=== PATIENT | male | born 1955 | race Caucasian/White ===

== ENCOUNTER → 2019-03-30 10:09 | Outpatient (CLI) | payer OTHER, MEDICAID, SELFPAY ==
[2019-03-30 10:57] LABS: Add Manual Diff / Slide Review NO; Basophils Absolute Auto 0 /uL (0-100); Basophils Percent Auto 0.5 % (0-2); Eosinophils Absolute Auto 400 /uL (0-450); Hematocrit 43.3 % (41-53); Hemoglobin 14.7 g/dL (13.5-17.5); Lymphocytes Absolute Auto 1300 /uL (1100-4500); Lymphocytes Percent Auto 20.6 % (25-40); Mean Corpuscular HGB Conc 33.9 % (30-36); Mean Corpuscular Hemoglobin 31.4 PG (26-34); Mean Corpuscular Volume 92.8 fL (80-100); Monocytes Absolute Auto 500 /uL (0-900); Monocytes Percent Auto 8.3 % (3-14); Neutrophils Absolute Auto 4200 /uL (1500-7000); Neutrophils Percent Auto 64.6 % (50-75); Platelet Count 295 X10^3/uL (150-400); Red Blood Cell Count 4.66 X10^6/uL (4.5-5.9); Red Cell Distribution Width 13.3 % (11.6-14.8); White Blood Cell Count 6.5 X10^3/uL (4.5-11.0)
[2019-03-30 12:50] LABS: Carbon Dioxide 30 mmol/L (22-32); Chloride 101 mmol/L (98-107); HEMOLYSIS < 15 (0-50); Potassium 4.8 mmol/L (3.4-5.1); Sodium 139 mmol/L (137-145)
== END ==
PROVIDERS: PCP Orthopaedic Surgery; Visit Provider Orthopaedic Surgery
DX: Z01.818 Encounter for other preprocedural examination (principal); Z01.812 Encounter for preprocedural laboratory examination
CPT/HCPCS: 36415; 80051; 85025; 93005; 93010

== ENCOUNTER → 2019-04-27 11:09 | Outpatient (CLI) | payer OTHER, MEDICAID, SELFPAY ==
[2019-04-27 12:07] LABS: Carbon Dioxide 30 mmol/L (22-32); Chloride 103 mmol/L (98-107); HEMOLYSIS < 15 (0-50); Potassium 4.4 mmol/L (3.4-5.1); Sodium 140 mmol/L (137-145)
== END ==
PROVIDERS: Visit Provider Physician Assistant Medical
DX: Z01.818 Encounter for other preprocedural examination (principal)
CPT/HCPCS: 36415; 80051

== ENCOUNTER 2019-04-28 07:22 | Inpatient (IN) | payer OTHER, MEDICAID, SELFPAY ==
[2019-04-16 12:59] VITALS: BMI 30.9
[2019-04-28] VITALS (14 sets, daily range): BP systolic 97–137; BP diastolic 51–86; PULSE 50–65; RESP 10–18; TEMP 35.6–36.7; O2SAT 95–100; BMI 30.9
--- NOTE | 2019-04-28 06:00 | DI.RAD.S_ITS ---
PROCEDURE: XR PELVIS 1-2V INDICATIONS: post op TECHNIQUE: 1 view of the lower pelvis acquired. COMPARISON: [facility] [place], CR, XR PELVIS WITH LATERAL HIP LEFT, 11/12/2017, 9:44. [facility] [place], CR, XR PELVIS WITH LATERAL HIP LEFT, 03/05/2018, 11:17. [facility], CR, XR PELVIS WITH LATERAL HIP LEFT, 03/17/2019, 9:51. FINDINGS: Bones: Patient is status post left hip arthroplasty, with hardware components in expected positions. The hip joint appears congruent. The visualized bony structures appear intact. There is mild to moderate degenerative joint disease of the right hip. Soft tissues: Overlying postoperative changes are noted. No suspicious soft tissue densities. IMPRESSION: Left knee arthroplasty with prosthesis in anatomic alignment. Dictated by: Jose Vera M.D. on 04/28/2019 at 17:02 Approved by: Jose Vera M.D. on 04/28/2019 at 17:03
[2019-04-28] MEDS: CELECOXIB 200 MG CAPSULE PO (08:31)
[2019-04-28] MEDS: PREGABALIN 75 MG CAPSULE PO (08:31)
[2019-04-28] MEDS: ACETAMINOPHEN 325 MG TABLET 975 MG PO ×2 (08:31→21:33)
[2019-04-28] MEDS: LACTATED RINGERS 1,000 ML 42 ML IV ×2 (08:35→12:30)
--- NOTE | 2019-04-28 10:18 | PM.PREOP ---
Pre-operative Note Interval Note History & Physical reviewed/Exam performed by Physician: Yes Changes to H&P: No
[2019-04-28] MEDS: CEFAZOLIN 2 GM/100 ML FROZ.PIGGY IV ×2 (10:50→18:00)
--- NOTE | 2019-04-28 11:24 | SUR.OPER ---
Lateral on padded OR bed. Gel axillary roll. Arms secured on padded armboard with pillow supporting top arm. Padded hip positioner braces x4 - anterior and posterior chest and pelvis. Additional gel pad used anterior pelvis. Gel pad under bottom leg from knee to foot and secured with tape over sheet.
[2019-04-28] MEDS: TRANEXAMIC ACID 1,000 MG VIAL 1000 MG INJ ×2 (11:29→12:40)
[2019-04-28] MEDS: KETOROLAC 30 MG/ML VIAL IV (11:30)
[2019-04-28] MEDS: ROPIVACAINE 0.5% PF 30ML 20 ML INJ (11:30)
[2019-04-28] MEDS: MORPHINE 4 MG/ML INJ INJ (11:30)
--- NOTE | 2019-04-28 12:56 | PM.OP.1 ---
Operative Date/Time/Diagnoses Date of procedure: 04/28/19 Time of procedure: 12:57 Pre-op diagnosis: Left hip degenerative joint disease status post cannulated screw fixation of left femoral neck fracture Post-op diagnosis: same Procedure & Clinicians Procedure: 1. Left hip hardware removal, cannulated screws (CPT code 99656 with clinical services assistant) 2. Left total hip arthroplasty, conversion of previous hip surgery to total hip arthroplasty (CPT code 60756 with clinical services assistant) Same procedure as scheduled: Yes Indications: Patient is an 64-year-old male with severe left hip DJD. History of displaced femoral neck fracture treated with cannulated screw fixation. 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 The patient has pain with activities and at rest, limited ambulation and activity tolerance, difficulties with ADLs, and failure of conservative treatment. We have discussed the nature of condition, treatment options, risks and benefits, and patient elects to proceed with total hip arthroplasty and gives informed consent. Surgeon: John Dasilva Outbound Telemarketing Representative: González Washington Anesthesia Type: General and Spinal Operative Notes Closure Type: primary Specimen(s): none sent Prosthetic devices, grafts, tissues, transplants, or devices: Acetabulum: Arriola and Nephew R3 acetabular component size 52 mm Femoral component: Arriola and Nephew Anthology stem size 6 with standard offset Femoral head: 36 mm + 4 Oxinium Estimated Blood Loss (mL): 200 Blood products transfused: none Procedure in detail: After satisfactory induction of anesthetic, and administration of IV antibiotics, the patient was positioned in the lateral decubitus position with all bony prominences well padded and pelvic position secured using a hip fire protection engineering technician positioning device. Left hip and lower extremity prepped and draped in the usual sterile fashion, 1st dose of intravenous tranexamic acid was administered, then a longitudinal incision was created centered over the greater trochanter and carried sharply through the skin and subcutaneous tissues down to the fascia elijah which was divided longitudinally. Distally and laterally the screw heads were palpable and small incisions made through the vastus lateralis over each screw and the screws were sequentially removed with a screwdriver. The fascia eljiah was then retracted with a Charnley retractor. The proximal and posterior anatomy were distorted secondary to the fracture and scar tissue but external rotators were reasonably well visualized, cut, tagged, and retracted posteriorly, then the capsule was cut in a T-type fashion with the corners tagged and retracted. Hip was dislocated and femoral neck cut made according to preoperative templating. Anterior capsular release was performed. Acetabular retractors then placed, and the acetabular labrum and osteophytes were excised. The acetabulum was then sequentially reamed to 51 mm with an excellent circumferential ream and fit with the trial. The trial component was removed and a permanent size 52 mm Arriola and Nephew R3 acetabular component was selected, positioned, and impacted with satisfactory position and fixation achieved. Permanent liner was then inserted with the elevated lip directed posteriorly. Soft tissue then removed off the lateral femoral neck in the lateral neck was entered using a box osteotome. T-handled reamers placed down the canal followed by sequential broaching to 6 with the final broach left in place for trial reduction which demonstrated excellent leg length, range of motion (although as expected somewhat tight and full extension), and stability characteristics with a 36 mm +4 trial ball. The trial and broach were removed, and a permanent size 6 Arriola and Nephew Anthology stem was selected and inserted with excellent position and fixation achieved. Another trial reduction yielded the above characteristics so the trial ball was exchanged for a permanent 36 mm +4 Oxinium ball. The hip was irrigated and reduced and excellent leg length range of motion and stability characteristics were achieved and maintained. Periarticular tissues were infiltrated with ropivacaine, Toradol, and morphine. The hip was copiously irrigated, and the capsule repaired with #2 Ethibond, and the piriformis was repaired back to the greater trochanter with the same. Fascia elijah closed with interrupted #1 Ethibond sutures, and the subcutaneous tissues were closed in 2 layers of 0 Vicryl and 2 0 Vicryl. Skin was closed with gonzales and sterile dressings applied. Second dose of tranexamic acid was administered intravenously, and the anesthetic was terminated. Complications: none Condition: stable Disposition: PACU Plan for aftercare: Patient will be admitted to the acute care [facility], and anticipate discharge on postop day 1 or 2 with follow-up in office in 10-14 days. Outpatient physical therapy will be arranged and patient will continue to observe posterior hip precautions. Patient will continue use of postoperative Lovenox for 10 days postop.
--- NOTE | 2019-04-28 12:59 | P.OP_ITS ---
Operative Date/Time/Diagnoses Date of procedure: 04/28/19 Time of procedure: 12:57 Pre-op diagnosis: Left hip degenerative joint disease status post cannulated screw fixation of left femoral neck fracture Post-op diagnosis: same Procedure & Clinicians Procedure: 1. Left hip hardware removal, cannulated screws (CPT code 33119 with veterinary assistant) 2. Left total hip arthroplasty, conversion of previous hip surgery to total hip arthroplasty (CPT code 28852 with veterinary assistant) Same procedure as scheduled: Yes Indications: Patient is an 64-year-old male with severe left hip DJD. History of displaced femoral neck fracture treated with cannulated screw fixation. 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 The patient has pain with activities and at rest, limited ambulation and activity tolerance, difficulties with ADLs, and failure of conservative treatment. We have discussed the nature of condition, treatment options, risks and benefits, and patient elects to proceed with total hip arthroplasty and gives informed consent. Surgeon: John Dasilva R D Internship: [facility] [place] Anesthesia Type: General and Spinal Operative Notes Closure Type: primary Specimen(s): none sent Prosthetic devices, grafts, tissues, transplants, or devices: Acetabulum: Arriola and Nephew R3 acetabular component size 52 mm Femoral component: Arriola and Nephew Anthology stem size 6 with standard offset Femoral head: 36 mm + 4 Oxinium Estimated Blood Loss (mL): 200 Blood products transfused: none Procedure in detail: After satisfactory induction of anesthetic, and administ ration of IV antibiotics, the patient was positioned in the lateral decubitus position with all bony prominences well padded and pelvic position secured using a hip textile finisher positioning device. Left hip and lower extremity prepped and draped in the usual sterile fashion, 1st dose of intravenous tranexamic acid was administered, then a longitudinal incision was created centered over the greater trochanter and carried sharply through the skin and subcutaneous tissues down to the fascia elijah which was divided longitudinally. Distally and laterally the screw heads were palpable and small incisions made through the vastus lateralis over each screw and the screws were sequentially removed with a screwdriver. The fascia elijah was then retracted with a Charnley retractor. The proximal and posterior anatomy were distorted secondary to the fracture and scar tissue but external rotators were reasonably well visualized, cut, tagged, and retracted posteriorly, then the capsule was cut in a T-type fashion with the corners tagged and retracted. Hip was dislocated and femoral neck cut made according to preoperative templating. Anterior capsular release was performed. Acetabular retractors then placed, and the acetabular labrum and osteophytes were excised. The acetabulum was then sequentially reamed to 51 mm with an excellent circumferential ream and fit with the trial. The trial component was removed and a permanent size 52 mm Arriola and Nephew R3 acetabular component was selected, positioned, and impacted with satisfactory position and fixation achieved. Permanent liner was then inserted with the elevated lip directed posteriorly. Soft tissue then removed off the lateral femoral neck in the lateral neck was entered using a box osteotome. T-handled reamers placed down the canal followed by sequential broaching to 6 with the final broach left in place for trial reduction which demonstrated excellent leg length, range of motion (although as expected somewhat tight and full extension), and stability characteristics with a 36 mm +4 trial ball. The trial and broach were removed, and a permanent size 6 Arriola and Nephew Anthology stem was selected and inserted with excellent position and fixation achieved. Another trial reduction yielded the above characteristics so the trial ball was exchanged for a permanent 36 mm +4 Oxinium ball. The hip was irrigated and reduced and excellent leg length range of motion and stability characteristics were achieved and maintained. Periarticular tissues were infiltrated with ropivacaine, Toradol, and morphine. The hip was copiously irrigated, and the capsule repaired with #2 Ethibond, and the piriformis was repaired back to the greater trochanter with the same. Fascia elijah closed with interrupted #1 Ethibond sutures, and the subcutaneous tissues were closed in 2 layers of 0 Vicryl and 2 0 Vicryl. Skin was closed with gonzales and sterile dressings applied. Second dose of tranexamic acid was administered intravenously, and the anesthetic was terminated. Complications: none Condition: stable Disposition: PACU Plan for aftercare: Patient will be admitted to the acute care [facility], and anticipate discharge on postop day 1 or 2 with follow-up in office in 10-14 days. Outpatient physical therapy will be arranged and patient will continue to observe posterior hip precautions. Patient will continue use of postoperative Lovenox for 10 days postop.
[2019-04-28] MEDS: LACTATED RINGERS 1,000 ML 125 ML IV (14:46)
--- NOTE | 2019-04-28 16:34 | PT.IIE ---
Current Diagnoses Unilateral primary osteoarthritis, left hip (04/28/19) Fracture of unspecified part of neck of left femur, subsequent encounter for closed fracture with routine healing (04/28/19) Surgery Performed Operation Date: 04/28/19 10:30 Actual Procedures p Total Hip Arthroplasty(Left) - John Dasilva MD Surgical History (Last Updated 04/16/19 @ 14:24 by Afua Morales RN) Hx of arthroscopy of left knee (Acute ~1980) Medical History (Last Updated 04/16/19 @ 13:10 by Afua Morales RN) Arthritis (Acute) Closed head injury (Acute ~1980) Finger fracture, right (Acute) Hip fracture, left (Acute 10/31/17) Physical Therapy Inpatient Evaluation/Re-Eval M1 PT/OT-IP Prior Functional Status Start: 04/28/19 18:23 Freq: NEEDED Status: Active Protocol: Document 04/28/19 16:34 AB (Rec: 04/28/19 18:37 AB [id number]) Medical Review Prior Functional Status Medical History Reviewed Yes Communication able to make needs known Mobility and Gait pt stated that he is independent with all mobilities and ambulation without AD but uses a SPC first thing in the morning when LE is stiff initially but does not use any AD after warming up Social History Household Members family Living Arrangements House Number of Floors (Floors) One Floor Number of Stairs To Enter/Railing? 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 stated that he has neighbors that can help out but cannot stay with them to assist him M2 PT-IP Current Condition Start: 04/28/19 18:23 Freq: NEEDED Status: Active Protocol: Document 04/28/19 16:34 AB (Rec: 04/28/19 18:37 AB [id number]) Physical Therapy Current Condition Current Condition Evaluation Date 04/28/19 Treatment Diagnosis s/p L DREW posterior approach; difficulty in walking Onset Date 04/28/19 Precautions Posterior Hip Precautions No Hip Flexion > 90 degrees No Hip Internal Rotation No Hip Adduction Weight Bearing Status Weight Bearing Status Weight Bear as Tolerated M3 PT-IP Subjective Start: 04/28/19 18:23 Freq: NEEDED Status: Active Protocol: Document 04/28/19 16:34 AB (Rec: 04/28/19 18:37 AB [id number]) Subjective Physical Therapy Visit Type Type Initial Evaluation Visit Start Time 16:34 Visit Stop Time 17:16 Total Visit Minutes 42 Number of DIRECTOR EMERGENCY Visits 0 Physical Therapy Visit Comments Patient Comments pt agreeable to do PT Therapy Pain Assessment Pain Present Pain Present Denied Pain M4 PT-IP Mobility and Gait Start: 04/28/19 18:23 Freq: NEEDED Status: Active Protocol: Document 04/28/19 16:34 AB (Rec: 04/28/19 18:37 AB [id number]) PT-Bed Mobility Assessment Supine to Sit Supine to Sit Standby Assistance Sit to Supine Sit to Supine Standby Assistance Scooting Scooting to Edge of Bed Standby Assistance PT-Transfer Assessment Sit to and From Stand Sit to and from Stand Moderate Assistance Maximum Assistance 1 Person Assistance Use of Upper Extremities Equipment Transfer Assistive Device Gait Belt Front Wheeled Walker Orthotic/Prosthetic Devices or Brace: No Transfers Transfer Destination Chair Transfer Technique Stand Step Pivot Transfer Ability Level of Assist Moderate Assistance 1 Person Assistance Use of Upper Extremities Comments Mobility Comments pt completed sit to stand mod A and max cues; completed stand step pivot transfer using FWW mod A and cues. (+) L knee buckling requiring max A for steadiness. required tactile and verbal cues to activate L quads. pt stated that LLE still a little numb and hard to control during weight bearing. pt was able to control LLE during open chain activities but unable to fully control during closed chain activities. pt requested to go back to bed afterwards. completed stand step pivot transfer to the bed requiring mod A and max cues to activate L quads and for safety. Gait Assessment Comments Gait Comments unable at this time due to decrease LLE control PT-Balance Assessment Sitting Balance and Reactions Static Sitting Balance Ability Good Dynamic Sitting Balance Ability Good Standing Balance and Reactions Static Standing Balance Ability Poor Dynamic Standing Balance Ability Poor Device Used FWW M5 PT-IP Objective Assessments Start: 04/28/19 18:23 Freq: NEEDED Status: Active Protocol: Document 04/28/19 16:34 AB (Rec: 04/28/19 18:37 AB [id number]) Orientation Orientation/Cognition Level of Alertness Alert Orientation Name Place Situation Language Function Ability No Deficits Noted Safety Awareness Decreased Safety Awareness Memory Description No Deficits Noted Comments require cues to maintain hip precautions Gross Range of Motion Lower Extremity ROM Assessment Within Functional Limits Strength Lower Extremity Strength Assessment Left Impaired Hip 3+/5 Knee 3+/5 Ankle 4/5 Coordination Assessment Gross Coordination Gross Coordination WNL Sensation Assessment Sensation Gross Sensation Left LE Impaired Sensation Description Numbness Comments Sensation Comments c/o slight thigh numbness Muscle Tone Muscle Tone WNL Yes M6 PT-IP Treatment Start: 04/28/19 18:23 Freq: NEEDED Status: Active Protocol: Document 04/28/19 16:34 AB (Rec: 04/28/19 18:37 AB [id number]) Physical Therapy Treatment Education Education Provided Precautions Weight Bearing Status Post-Op Packet Safety Other Treatments Other Treatment Performed pt requires cues for L hip posterior precautions M7 PT-IP Assessment and Plan Start: 04/28/19 18:23 Freq: NEEDED Status: Active Protocol: Document 04/28/19 16:34 AB (Rec: 04/28/19 18:37 AB [id number]) PT Summary Assessment and Plan Potential Rehabilitation Potential Good Status of Condition at Evaluation Evolving Summary Impairments Pain ROM Strength Balance Coordination Sensation Tone Cognition Bed Mobility Transfers Gait Activity Tolerance Assessment Summary pt requiring mod ot max A with mobility and still c/o slight L thigh numbness with (+) L knee buckling during standing/ transfers. d/c plan depending on progress. 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 will continue to assess progress. pt stated that he is set up for outpt PT already. Goals Bed Mobility Goal Independent Transfer Goal Independent Front Wheeled Walker Gait Goal Independent Front Wheel Walker Gait Distance 200 Other Goals up/down 2 steps with R rail ascending SBA Days to Meet Goals 5 Frequency of Treatment Frequency Of Treatment Twice a Day Treatment Plan Physical Therapy Treatment Plan Bed Mobility Training Transfer Training Gait Training Therapeutic Exercise Balance Retraining Post Op Education Discharge Planning Hot or Cold Pack Neuromuscular Re-ed Coordination Retraining Manual Therapy Other Recommendations and Next Treatment transfers, ambulation Focus Recommendations To Nursing Amount of Assist Needed 1 Person Assist Discharge Recommendations PT Discharge Recommendations Home Outpatient PT
--- NOTE | 2019-04-29 00:24 | PC.NURSE ---
2300- Pt POD#0 L total hip w/ bulky dressing CDI; CMS intact. Pt denies pain; cont SpO2 in place as pt has a spinal done. Worked w/ PT however, not able to walk fully yet. Tolerating regular diet w/ no naus/vomiting. L hand IV running LR as ordered. Pt having difficulty voiding; straight cath completed @ 1830; bladder scan redone @ 2300 w/ 399 cc. Pt denies need for straight cath again, states he wants to try and void on his own. 0500- Pt still not voided since start of my shift. Up to bathroom 1PA w/ FWW; no luck voiding. Bladder scan= 509cc; pt has refused straight cath at this time stating he will 'go soon he feels like'. Will cont to monitor.
[2019-04-29] MEDS: LACTATED RINGERS 1,000 ML 125 ML IV ×2 (00:40→06:27)
[2019-04-29] MEDS: CEFAZOLIN 2 GM/100 ML FROZ.PIGGY IV (03:37)
[2019-04-29 06:00] VITALS: BP 103/52; PULSE 62; RESP 16; TEMP 36.6
[2019-04-29 06:19] LABS: Hematocrit 30.5 % (41-53); Hemoglobin 10.7 g/dL (13.5-17.5)
--- NOTE | 2019-04-29 07:52 | PM.PNPO.1 ---
Subjective Date Patient Seen: 04/29/19 Time Patient Seen: 07:53 Interval history: Patient denies pain. [place] a little nauseous last night but no vomiting. No fever chills. Has not yet worked with physical therapy. He has only been to the bedside chair 1 since surgery. Otherwise without complaints. Exam Vital Signs (past 8 hours): - 04/29/19 06:00 Temperature 97.8 F Pulse Rate 62 Respiratory Rate 16 Blood Pressure 103/52 L Oxygen Delivery Method Room Air Oxygen Flow Rate 0 Narrative Exam Narrative: Pleasant 64-year-old male resting comfortably in bed in no apparent distress. Left hip dressing is clean, dry and intact. Sensation grossly intact to light touch bilateral lower extremities. Motor function is intact distally. Left lower leg is warm and dry. Objective Labs Result Diagrams: 04/29/19 06:03 Labs: Laboratory Results - last 24 hr 04/29/19 06:03 Hgb 10.7 L Hct 30.5 L Assessment & Plan Post-op Postoperative Procedures Operation Date: 04/28/19 10:30 Actual Procedures Side Surgeon p Total Hip Arthroplasty Left John Dasilva MD Quality VTE Deep Vein Thrombosis/Pulmonary Embolism Present on Admission: No
[2019-04-29 08:31] VITALS: BP 96/53; PULSE 60; RESP 16; TEMP 37.4; O2SAT 97
--- NOTE | 2019-04-29 08:43 | CM.DANOTE ---
DCP: Case received, EMR reviewed and met with patient. Introduced self and role. History and baseline health information received from patient. DCP assessment template completed from information currently available. Patient is a 64 year old male who admitted yesterday morning to the care of the surgical team. PCP: [facility] on [address]. Payer: confirmed: [facility] [employer]Medicaid. Patient came to hospital for a surgical procedure. He had a cannulated screw fixation of left femoral neck. Patient stated that he originally had left femoral surgery, and they had to go in and remove some of the hardware. Patient is alert and oriented. Confirmed that he lives in [facility] [place] [facility], and his mother also resides with him. He stated that he helps her out at home. He also mentioned that he has neighbors that are helping her while he is here. Confirmed with patient that he is independent at home. He confirmed that he already has outpatient physical therapy set up with [facility]. He stated, that he has several neighbors that can help him out at home if needed. He will be working with physical therapy today. P: DCP to continue to follow. Patient should be able to go home when he is medically stable, and after he has worked with physical therapy team. Alia Coelho RN/[employer]
[2019-04-29] MEDS: ACETAMINOPHEN 325 MG TABLET 975 MG PO ×3 (09:10→21:17)
[2019-04-29] MEDS: ENOXAPARIN 40 MG/0.4 ML SYRINGE SUBCUT (09:11)
--- NOTE | 2019-04-29 11:00 | PC.NURSE ---
Patient had not voided since previous night. Patient was bladder scanned which showed 600-700mL. An in and out catherterization was performed and 675 mL was removed, the patient tolerated it well.
--- NOTE | 2019-04-29 11:25 | PT.IPTN ---
Current Diagnoses Unilateral primary osteoarthritis, left hip (04/28/19) Fracture of unspecified part of neck of left femur, subsequent encounter for closed fracture with routine healing (04/28/19) Surgery Performed Operation Date: 04/28/19 10:30 Actual Procedures p Total Hip Arthroplasty(Left) - John Dasilva MD Physical Therapy Treatment Note M2 PT-IP Current Condition Start: 04/28/19 18:23 Freq: NEEDED Status: Active Protocol: Document 04/28/19 16:34 AB (Rec: 04/28/19 18:37 AB [id number]) Physical Therapy Current Condition Current Condition Evaluation Date 04/28/19 Treatment Diagnosis s/p L DREW posterior approach; difficulty in walking Onset Date 04/28/19 Precautions Posterior Hip Precautions No Hip Flexion > 90 degrees No Hip Internal Rotation No Hip Adduction Weight Bearing Status Weight Bearing Status Weight Bear as Tolerated M3 PT-IP Subjective Start: 04/28/19 18:23 Freq: NEEDED Status: Active Protocol: Document 04/29/19 11:25 GGD (Rec: 04/29/19 12:28 GGD [email or web address]) Subjective Physical Therapy Visit Type Type Treatment Note Visit Start Time 11:00 Visit Stop Time 11:25 Total Visit Minutes 25 Number of REEL WORKER Visits 1 Physical Therapy Visit Comments Patient Comments Pt states he is doing better. Therapy Pain Assessment Pain Present Pain Present Denied Pain M4 PT-IP Mobility and Gait Start: 04/28/19 18:23 Freq: NEEDED Status: Active Protocol: Document 04/29/19 11:25 GGD (Rec: 04/29/19 12:28 GGD [email or web address]) PT-Bed Mobility Assessment Supine to Sit Supine to Sit Standby Assistance Scooting Scooting to Edge of Bed Standby Assistance PT-Transfer Assessment Sit to and From Stand Sit to and from Stand Contact Guard Assistance 1 Person Assistance Use of Upper Extremities Equipment Transfer Assistive Device Gait Belt Front Wheeled Walker Orthotic/Prosthetic Devices or Brace: No Transfers Transfer Destination Chair Transfer Ability Level of Assist Contact Guard Assistance 1 Person Assistance Use of Upper Extremities Gait Assessment Gait Gait Assistance Required: Contact Guard Assist 1 Person Assist Distance (Feet) 220 Able to Maintain Weight Bearing Status Yes During Gait Assistive Devices Assistive Device Gait Belt Front Wheeled Walker Orthotic/Prosthetic Devices or Brace: No Gait Deviations General Gait Pattern Antalgic Decreased Stride Length Decreased Feet Clearance Factors Limiting Gait Function Factors Limiting Gait Function Limited Range of Motion Pain M5 PT-IP Objective Assessments Start: 04/28/19 18:23 Freq: NEEDED Status: Active Protocol: Document 04/28/19 16:34 AB (Rec: 04/28/19 18:37 AB [id number]) Orientation Orientation/Cognition Level of Alertness Alert Orientation Name Place Situation Language Function Ability No Deficits Noted Safety Awareness Decreased Safety Awareness Memory Description No Deficits Noted Comments require cues to maintain hip precautions Gross Range of Motion Lower Extremity ROM Assessment Within Functional Limits Strength Lower Extremity Strength Assessment Left Impaired Hip 3+/5 Knee 3+/5 Ankle 4/5 Coordination Assessment Gross Coordination Gross Coordination WNL Sensation Assessment Sensation Gross Sensation Left LE Impaired Sensation Description Numbness Comments Sensation Comments c/o slight thigh numbness Muscle Tone Muscle Tone WNL Yes M6 PT-IP Treatment Start: 04/28/19 18:23 Freq: NEEDED Status: Active Protocol: Document 04/29/19 11:25 GGD (Rec: 04/29/19 12:28 GGD [email or web address]) Physical Therapy Treatment Exercises Exercises Ankle Pumps Gluteal Sets Quad Sets Short Arc Quads Education Education Provided Precautions Weight Bearing Status M7 PT-IP Assessment and Plan Start: 04/28/19 18:23 Freq: NEEDED Status: Active Protocol: Document 04/29/19 11:25 GGD (Rec: 04/29/19 12:28 GGD [email or web address]) PT Summary Assessment and Plan Summary Assessment Summary Pt improving with mobility. He progress with mobility and need CGA. He need cues for hip precautions. He was able to progress gait distance. Pt will need stair mobility, before D/C home. Frequency of Treatment Frequency Of Treatment Twice a Day Treatment Plan Physical Therapy Treatment Plan Bed Mobility Training Transfer Training Gait Training Therapeutic Exercise Balance Retraining Post Op Education Discharge Planning Hot or Cold Pack Neuromuscular Re-ed Coordination Retraining Manual Therapy Recommendations To Nursing Amount of Assist Needed 1 Person Assist Discharge Recommendations PT Discharge Recommendations Home Outpatient PT
[2019-04-29 12:05] VITALS: BP 97/60; PULSE 61; RESP 16; TEMP 37.6; O2SAT 97
[2019-04-29 15:34] VITALS: BP 100/57; PULSE 57; RESP 18; TEMP 37; O2SAT 98
--- NOTE | 2019-04-29 16:00 | PT.IPTN ---
Current Diagnoses Unilateral primary osteoarthritis, left hip (04/28/19) Fracture of unspecified part of neck of left femur, subsequent encounter for closed fracture with routine healing (04/28/19) Surgery Performed Operation Date: 04/28/19 10:30 Actual Procedures p Total Hip Arthroplasty(Left) - John Dasilva MD Physical Therapy Treatment Note M2 PT-IP Current Condition Start: 04/28/19 18:23 Freq: NEEDED Status: Active Protocol: Document 04/28/19 16:34 AB (Rec: 04/28/19 18:37 AB [id number]) Physical Therapy Current Condition Current Condition Evaluation Date 04/28/19 Treatment Diagnosis s/p L DREW posterior approach; difficulty in walking Onset Date 04/28/19 Precautions Posterior Hip Precautions No Hip Flexion > 90 degrees No Hip Internal Rotation No Hip Adduction Weight Bearing Status Weight Bearing Status Weight Bear as Tolerated M3 PT-IP Subjective Start: 04/28/19 18:23 Freq: NEEDED Status: Active Protocol: Document 04/29/19 16:00 GGD (Rec: 04/29/19 17:02 GGD [email or web address]) Subjective Physical Therapy Visit Type Type Treatment Note Visit Start Time 13:30 Visit Stop Time 16:00 Total Visit Minutes 30 Number of RAIL SPECIALIST Visits 2 Physical Therapy Visit Comments Patient Comments Pt willing to work with therapy. Therapy Pain Assessment Pain When Pain Assessed At Rest Pain Present Pain Present Pain Reported Location left hip Intensity 1 Scale Used Numeric (1 - 10) M4 PT-IP Mobility and Gait Start: 04/28/19 18:23 Freq: NEEDED Status: Active Protocol: Document 04/29/19 16:00 GGD (Rec: 04/29/19 17:02 GGD [email or web address]) PT-Bed Mobility Assessment Supine to Sit Supine to Sit Standby Assistance Sit to Supine Sit to Supine Standby Assistance Scooting Scooting to Edge of Bed Standby Assistance PT-Transfer Assessment Sit to and From Stand Sit to and from Stand Contact Guard Assistance 1 Person Assistance Use of Upper Extremities Equipment Transfer Assistive Device Gait Belt Front Wheeled Walker Orthotic/Prosthetic Devices or Brace: No Transfers Transfer Destination Chair Transfer Ability Level of Assist Contact Guard Assistance 1 Person Assistance Use of Upper Extremities Gait Assessment Gait Gait Assistance Required: Contact Guard Assist 1 Person Assist Distance (Feet) 250 Able to Maintain Weight Bearing Status Yes During Gait Assistive Devices Assistive Device Gait Belt Front Wheeled Walker Orthotic/Prosthetic Devices or Brace: No Gait Deviations General Gait Pattern Antalgic Decreased Stride Length Decreased Feet Clearance Factors Limiting Gait Function Factors Limiting Gait Function Limited Range of Motion Pain Stair Climbing Assessment Evaluation Level of Assist On Stairs Contact Guard Assistance Devices Stair Climbing Assistive Devices Right Railing Technique/Endurance Stair Climbing Direction Ascend and Descend Stair Climbing Technique Step to Step Number of Steps Climbed 3 Query Text: Stair Climbing Set # Repetitions (reps) 2 M5 PT-IP Objective Assessments Start: 04/28/19 18:23 Freq: NEEDED Status: Active Protocol: Document 04/28/19 16:34 AB (Rec: 04/28/19 18:37 AB [id number]) Orientation Orientation/Cognition Level of Alertness Alert Orientation Name Place Situation Language Function Ability No Deficits Noted Safety Awareness Decreased Safety Awareness Memory Description No Deficits Noted Comments require cues to maintain hip precautions Gross Range of Motion Lower Extremity ROM Assessment Within Functional Limits Strength Lower Extremity Strength Assessment Left Impaired Hip 3+/5 Knee 3+/5 Ankle 4/5 Coordination Assessment Gross Coordination Gross Coordination WNL Sensation Assessment Sensation Gross Sensation Left LE Impaired Sensation Description Numbness Comments Sensation Comments c/o slight thigh numbness Muscle Tone Muscle Tone WNL Yes M6 PT-IP Treatment Start: 04/28/19 18:23 Freq: NEEDED Status: Active Protocol: Document 04/29/19 16:00 GGD (Rec: 04/29/19 17:02 GGD [email or web address]) Physical Therapy Treatment Exercises Exercises Ankle Pumps Gluteal Sets Quad Sets Education Education Provided Precautions M7 PT-IP Assessment and Plan Start: 04/28/19 18:23 Freq: NEEDED Status: Active Protocol: Document 04/29/19 16:00 GGD (Rec: 04/29/19 17:02 GGD [email or web address]) PT Summary Assessment and Plan Summary Assessment Summary Pt improving with mobility. He was safe and stable with stair mobility. He needed decrease in cues for precautions and gait pattern. Frequency of Treatment Frequency Of Treatment Twice a Day Treatment Plan Physical Therapy Treatment Plan Bed Mobility Training Transfer Training Gait Training Therapeutic Exercise Balance Retraining Post Op Education Discharge Planning Hot or Cold Pack Neuromuscular Re-ed Coordination Retraining Manual Therapy Recommendations To Nursing Amount of Assist Needed 1 Person Assist Discharge Recommendations PT Discharge Recommendations Home Outpatient PT
[2019-04-29] MEDS: OXYCODONE IR 5 MG TABLET PO (16:18)
--- NOTE | 2019-04-29 16:28 | PC.NURSE ---
Addendum entered by Dee York R.N. 04/29/19 19:04: Pt reports has own I.S. at home as part of ortho instruction preop. States no difficulty with deep breathing. Pt independent in lung exercises. Addendum entered by Dee York R.N. 04/29/19 18:44: Pt now able to void spontaneously. Continue with oral fluids and monitor. Urine light yellow in color per urinal. Addendum entered by Dee York R.N. 04/29/19 18:26: Eight hours since last in and out cath as per report. Bladder scanned for 709 cc's. Pt currently on telephone and plan to discuss when not. Addendum entered by Dee York R.N. 04/29/19 17:16: Pt states pain relief excellent now 0/10 to left hip. Coversite dressings x 2 to left hip remain dry and intact. Pt observes hip precautions and pillow between legs. Taking oral fluids and foods well. Original Note: Pt up with P.T. @ beginning of evening shift. P.T. primary teaching assistant reports pt's left hip dressing is rolling up and inquires about changing this dressing. Hypofix tape proximally has rolled onto dressing and so this was removed. Staple line to left hip is well approximated with no active bleeding noted. Covered incision with coversite dressings x 2. P.T. mobilizing pt in room and on stairs. Pt reports pain 2/10 following these exercises and return to bed. States sensation beginning to return and rates pain 2/10 to left hip and requests analgesia. Administered meds as per emar. Pt declines offer for ice to surgical site. BL calf scd's in place. Pt admits to full sensation to BL LE's. Awaiting void. Pt taking oral fluids well.
[2019-04-29 19:41] VITALS: BP 105/58; PULSE 57; RESP 18; TEMP 37.3; O2SAT 98
[2019-04-29] MEDS: SODIUM CHLORIDE 0.9% FLUSH 10 ML IV (21:17)
[2019-04-30 00:39] VITALS: BP 110/59; PULSE 56; RESP 15; TEMP 36.7; O2SAT 100
[2019-04-30 05:18] VITALS: BP 106/58; PULSE 58; RESP 16; TEMP 37.1; O2SAT 97
[2019-04-30] MEDS: ACETAMINOPHEN 325 MG TABLET 975 MG PO ×2 (06:43→12:19)
--- NOTE | 2019-04-30 08:24 | PM.DS.1 ---
History of Present Illness Date Patient Seen: 04/30/19 Time Patient Seen: 08:24 Chief complaint: [id number] Left DREW/HARDWARE REMOVAL Narrative: Hospital day 3, postop day 2 following left hip hardware removal and posterior total hip arthroplasty. Patient has remained stable postoperatively. Has progressed with physical therapy. He is a [facility] patient. Patient feels he is ready for discharge home today. He is scheduled to go to [facility]. Discharge Providers Date of admission: 04/28/19 07:22 Discharge Date: 04/30/19 Consults: 04/28/19 06:00 Consult to Anesthesiology Routine Comment: Consulting Provider: Anesthesiologist Reason for consultation: Regional block for post operative pain control 04/28/19 14:16 Consult to Discharge Planning Routine Comment: Consult to Physical Therapy Evaluate & Treat Comment: Physician Instructions: post op DREW protocol Consult to Respiratory Therapy Evaluate & Treat Comment: Physician Instructions: Evaluate and treat Discharge provider: Carlos Manuel Tate PA-C Summary Discharge Diagnosis: Status post left hip hardware removal and posterior total hip arthroplasty Hospital Course: Patient brought to hospital on 04/28/2019 for above noted surgery. He has remained stable postoperatively. Progressed well with physical therapy. Ready for discharge home on postop day 2. Status at Discharge Cognitive/behavioral status at discharge: oriented Functional status at discharge: uses cane/walker Overall status at discharge: patient is progressing back to baseline Time Spent with Patient Less than 30 minutes Exam Vital Signs (past 8 hours): - 04/30/19 00:39 04/30/19 05:18 Temperature 98.0 F 98.7 F Pulse Rate 56 L 58 L Respiratory Rate 15 16 Blood Pressure 110/59 L 106/58 L Pulse Oximetry 100 97 Oxygen Delivery Method Room Air Oxygen Flow Rate 0 Narrative Exam Narrative: Alert, oriented no acute distress resting in bed. Farzana legs. Dressing to left hip is dry with small area of shadowing. No signs of infection or inflammation. No calf pain or swelling. Pulses symmetrical. Objective Labs Result Diagrams: 04/29/19 06:03 Discharge Plan Discharge Plan Patient Disposition: Home Discharge comment: Discharged home after cleared by PT. Patient is a [facility] patient and has postoperative pain medication at home. He will be on Lovenox injections times 10 days postop. Restart aspirin 81 mg b.i.d. after he finishes the Lovenox. Discharge Med Rec/Prescriptions Prescriptions: New acetaminophen 325 mg Tablet 975 mg PO TID Qty: 30 RF: 0 enoxaparin 40 mg/0.4 mL syringe 40 mg SUBCUT DAILY Qty: 8 RF: 0 Continued aspirin 81 MG tablet,delayed release (DR/EC) 81 mg PO PRN PRN (Reason: Pain) RF: 0 Discontinued hydrocodone-acetaminophen [[place]] 5 MG/325 MG tablet 1 tab PO Q4HP PRN (Reason: Pain) RF: 0 Provider Discharge Instructions Diet: Diet as Tolerated Cold/Heat Therapy: Cold pack to left hip as needed. Skin/Wound/Dressing Care Report to your healthcare provider any signs of infection, such as:: chills, fever, night sweats, increased pain, unusual drainage and unusual redness Dressing: Keep CovRsite dressing in place until postop visit. Visit Report/Discharge Packet Instructions: DI for Hip Replacement Discharge Data Attending Provider: John Dasilva Admit Date/Time: 04/28/19 07:22 Quality VTE Deep Vein Thrombosis/Pulmonary Embolism Present on Admission: No
--- NOTE | 2019-04-30 08:27 | P.DS_ITS ---
History of Present Illness Date Patient Seen: 04/30/19 Time Patient Seen: 08:24 Chief complaint: [id number] Left DREW/HARDWARE REMOVAL Narrative: Hospital day 3, postop day 2 following left hip hardware removal and posterior total hip arthroplasty. Patient has remained stable postoperatively. Has progressed with physical therapy. He is a [facility] patient. Patient feels he is ready for discharge home today. He is scheduled to go to [facility]. Discharge Providers Date of admission: 04/28/19 07:22 Discharge Date: 04/30/19 Consults: 04/28/19 06:00 Consult to Anesthesiology Routine Comment: Consulting Provider: Anesthesiologist Reason for consultation: Regional block for post operative pain control 04/28/19 14:16 Consult to Discharge Planning Routine Comment: Consult to Physical Therapy Evaluate & Treat Comment: Physician Instructions: post op DREW protocol Consult to Respiratory Therapy Evaluate & Treat Comment: Physician Instructions: Evaluate and treat Discharge provider: Carlos Manuel Tate PA-C Summary Discharge Diagnosis: Status post left hip hardware removal and posterior total hip arthroplasty Hospital Course: Patient brought to hospital on 04/28/2019 for above noted surgery. He has remained stable postoperatively. Progressed well with physical therapy. Ready for discharge home on postop day 2. Status at Discharge Cognitive/behavioral status at discharge: oriented Functional status at discharge: uses cane/walker Overall status at discharge: patient is progressing back to baseline Time Spent with Patient Less than 30 minutes Exam Vital Signs (past 8 hours): - 04/30/19 00:39 04/30/19 05:18 Temperature 98.0 F 98.7 F Pulse Rate 56 L 58 L Respiratory Rate 15 16 Blood Pressure 110/59 L 106/58 L Pulse Oximetry 100 97 Oxygen Delivery Method Room Air Oxygen Flow Rate 0 Narrative Exam Narrative: Alert, oriented no acute distress resting in bed. Farzana legs. Dressing to left hip is dry with small area of shadowing. No signs of infection or inflammation. No calf pain or swelling. Pulses symmetrical. Objective Labs Result Diagrams: 04/29/19 06:03 Discharge Plan Discharge Plan Patient Disposition: Home Discharge comment: Discharged home after cleared by PT. Patient is a [facility] patient and has postoperative pain medication at home. He will be on Lovenox injections times 10 days postop. Restart aspirin 81 mg b.i.d. after he finishes the Lovenox. Discharge Med Rec/Prescriptions Prescriptions: New acetaminophen 325 mg Tablet 975 mg PO TID Qty: 30 RF: 0 enoxaparin 40 mg/0.4 mL syringe 40 mg SUBCUT DAILY Qty: 8 RF: 0 Continued aspirin 81 MG tablet,delayed release (DR/EC) 81 mg PO PRN PRN (Reason: Pain) RF: 0 Discontinued hydrocodone-acetaminophen [[place]] 5 MG/325 MG tablet 1 tab PO Q4HP PRN (Reason: Pain) RF: 0 Provider Discharge Instructions Diet: Diet as Tolerated Cold/Heat Therapy: Cold pack to left hip as needed. Skin/Wound/Dressing Care Report to your healthcare provider any signs of infection, such as:: chills, fever, night sweats, increased pain, unusual drainage and unusual redness Dressing: Keep CovRsite dressing in place until postop visit. Visit Report/Discharge Packet Instructions: DI for Hip Replacement Discharge Data Attending Provider: John Dasilva Admit Date/Time: 04/28/19 07:22 Quality VTE Deep Vein Thrombosis/Pulmonary Embolism Present on Admission: No
[2019-04-30 08:35] VITALS: BP 119/66; PULSE 61; RESP 18; TEMP 36.6; O2SAT 99
[2019-04-30] MEDS: ENOXAPARIN 40 MG/0.4 ML SYRINGE SUBCUT (09:54)
--- NOTE | 2019-04-30 10:35 | PT.IPTN ---
Current Diagnoses Unilateral primary osteoarthritis, left hip (04/28/19) Fracture of unspecified part of neck of left femur, subsequent encounter for closed fracture with routine healing (04/28/19) Surgery Performed Operation Date: 04/28/19 10:30 Actual Procedures p Total Hip Arthroplasty(Left) - John Dasilva MD Physical Therapy Treatment Note M2 PT-IP Current Condition Start: 04/28/19 18:23 Freq: NEEDED Status: Active Protocol: Document 04/28/19 16:34 AB (Rec: 04/28/19 18:37 AB [id number]) Physical Therapy Current Condition Current Condition Evaluation Date 04/28/19 Treatment Diagnosis s/p L DREW posterior approach; difficulty in walking Onset Date 04/28/19 Precautions Posterior Hip Precautions No Hip Flexion > 90 degrees No Hip Internal Rotation No Hip Adduction Weight Bearing Status Weight Bearing Status Weight Bear as Tolerated M3 PT-IP Subjective Start: 04/28/19 18:23 Freq: NEEDED Status: Active Protocol: Document 04/30/19 10:35 GGD (Rec: 04/30/19 11:54 GGD [id number]) Subjective Physical Therapy Visit Type Type Treatment Note Visit Start Time 09:55 Visit Stop Time 10:35 Total Visit Minutes 40 Number of RUG CLEANER Visits 3 Physical Therapy Visit Comments Patient Comments Pt states he feels better. Therapy Pain Assessment Pain When Pain Assessed At Rest Pain Present Pain Present Pain Reported M4 PT-IP Mobility and Gait Start: 04/28/19 18:23 Freq: NEEDED Status: Active Protocol: Document 04/30/19 10:35 GGD (Rec: 04/30/19 11:54 GGD [id number]) PT-Transfer Assessment Sit to and From Stand Sit to and from Stand Standby Assistance Use of Upper Extremities Equipment Transfer Assistive Device Gait Belt Front Wheeled Walker Orthotic/Prosthetic Devices or Brace: No Transfers Transfer Destination Bedside Commode Transfer Ability Level of Assist Contact Guard Assistance 1 Person Assistance Use of Upper Extremities Comments Mobility Comments [place] [facility] [place] RN in room. Gait Assessment Gait Gait Assistance Required: Standby Assistance 1 Person Assist Distance (Feet) 250 Able to Maintain Weight Bearing Status Yes During Gait Assistive Devices Assistive Device Gait Belt Front Wheeled Walker Orthotic/Prosthetic Devices or Brace: No Gait Deviations General Gait Pattern Antalgic Decreased Stride Length Decreased Feet Clearance Factors Limiting Gait Function Factors Limiting Gait Function Limited Range of Motion Pain Stair Climbing Assessment Evaluation Level of Assist On Stairs Contact Guard Assistance Devices Stair Climbing Assistive Devices Right Railing Technique/Endurance Stair Climbing Direction Ascend and Descend Stair Climbing Technique Step to Step Number of Steps Climbed 3 Query Text: Stair Climbing Set # Repetitions (reps) 1 Comments Stair Climbing Comments Pt need cues for gait pattern M5 PT-IP Objective Assessments Start: 04/28/19 18:23 Freq: NEEDED Status: Active Protocol: Document 04/28/19 16:34 AB (Rec: 04/28/19 18:37 AB [id number]) Orientation Orientation/Cognition Level of Alertness Alert Orientation Name Place Situation Language Function Ability No Deficits Noted Safety Awareness Decreased Safety Awareness Memory Description No Deficits Noted Comments require cues to maintain hip precautions Gross Range of Motion Lower Extremity ROM Assessment Within Functional Limits Strength Lower Extremity Strength Assessment Left Impaired Hip 3+/5 Knee 3+/5 Ankle 4/5 Coordination Assessment Gross Coordination Gross Coordination WNL Sensation Assessment Sensation Gross Sensation Left LE Impaired Sensation Description Numbness Comments Sensation Comments c/o slight thigh numbness Muscle Tone Muscle Tone WNL Yes M6 PT-IP Treatment Start: 04/28/19 18:23 Freq: NEEDED Status: Active Protocol: Document 04/30/19 10:35 GGD (Rec: 04/30/19 11:54 GGD [id number]) Physical Therapy Treatment Exercises Exercises Ankle Pumps Gluteal Sets Quad Sets Seated Knee Flexion/Extension Education Education Provided Precautions M7 PT-IP Assessment and Plan Start: 04/28/19 18:23 Freq: NEEDED Status: Active Protocol: Document 04/30/19 10:35 GGD (Rec: 04/30/19 11:54 GGD [id number]) PT Summary Assessment and Plan Summary Assessment Summary Pt improved with mobility. He demonstrated improved hip precautions with mobility. He is safe for home D/C when medically stable. Frequency of Treatment Frequency Of Treatment Twice a Day Treatment Plan Physical Therapy Treatment Plan Bed Mobility Training Transfer Training Gait Training Therapeutic Exercise Balance Retraining Post Op Education Discharge Planning Hot or Cold Pack Neuromuscular Re-ed Coordination Retraining Manual Therapy Recommendations To Nursing Amount of Assist Needed 1 Person Assist Discharge Recommendations PT Discharge Recommendations Home Outpatient PT
[2019-04-30 11:00] VITALS: BP 121/68; PULSE 60; RESP 18; TEMP 36.2; O2SAT 99
== END 2019-04-30 14:15 | disposition home or self-care (01) | DRG 301 ==
PROVIDERS: Admitting Provider Orthopaedic Surgery; Visit Provider Orthopaedic Surgery
PROC: 0SRB0JZ Replacement of Left Hip Joint with Synthetic Substitute, Open Approach (ICD-10-PCS; CPT 27130; principal; 2019-04-28 10:30)
DX: M16.7 Other unilateral secondary osteoarthritis of hip (principal); S72.002D Fracture of unspecified part of neck of left femur, subsequent encounter for closed fracture with routine healing; X58.XXXA Exposure to other specified factors, initial encounter; I69.354 Hemiplegia and hemiparesis following cerebral infarction affecting left non-dominant side
CPT/HCPCS: 36415; 72170; 80051; 85014; 85018; 97110; 97116; 97162; 97530; C1776; J0690; J1100; J1650; J1885; J2250; J2270; J2274; J2405; J2704; J2795

== ENCOUNTER → 2020-08-22 08:33 | Outpatient (CLI) | payer OTHER, MEDICAID, SELFPAY ==
[2019-04-28 14:23] VITALS: BMI 30.9
[2020-08-22 09:25] LABS: Add Manual Diff / Slide Review NO; Basophils Absolute Auto 0 /uL (0-100); Basophils Percent Auto 0.5 % (0-2); Eosinophils Absolute Auto 500 /uL (0-450); Eosinophils Percent Auto 7.4 % (2-4); Hematocrit 41.5 % (41-53); Hemoglobin 14.3 g/dL (13.5-17.5); Lymphocytes Absolute Auto 1400 /uL (1100-4500); Lymphocytes Percent Auto 21.2 % (25-40); Mean Corpuscular HGB Conc 34.5 % (30-36); Mean Corpuscular Hemoglobin 31.9 PG (26-34); Mean Corpuscular Volume 92.3 fL (80-100); Monocytes Absolute Auto 600 /uL (0-900); Monocytes Percent Auto 8.8 % (3-14); Neutrophils Absolute Auto 4000 /uL (1500-7000); Neutrophils Percent Auto 62.1 % (50-75); Platelet Count 243 X10^3/uL (150-400); Red Cell Distribution Width 13.3 % (11.6-14.8); White Blood Cell Count 6.5 X10^3/uL (4.5-11.0)
== END ==
PROVIDERS: Referring Provider Orthopaedic Surgery; Visit Provider Orthopaedic Surgery
DX: Z01.812 Encounter for preprocedural laboratory examination (principal); Z01.818 Encounter for other preprocedural examination
CPT/HCPCS: 36415; 85025; 93005

== ENCOUNTER → 2020-10-03 09:03 | Outpatient (CLI) | payer OTHER, MEDICAID, SELFPAY ==
[2019-04-28 14:23] VITALS: BMI 30.9
[2020-10-03 11:35] LABS: COVID19 -Nasal RAPID Negative (Negative)
== END ==
PROVIDERS: Visit Provider Physician Assistant
DX: Z11.59 Encounter for screening for other viral diseases (principal)
CPT/HCPCS: 87635

== ENCOUNTER → 2020-10-05 07:35 | Day surgery (SDC) | payer OTHER, MEDICAID, SELFPAY ==
[2019-04-28 14:23] VITALS: BMI 30.9
[2020-09-28 09:47] VITALS: BMI 29.5
[2020-10-05 09:01] VITALS: BMI 29.9
--- NOTE | 2020-10-05 09:19 | SUR.PREOP ---
During preop assessment patient noted to have a rash to right hip and bilateral shoulders. Dr. Dasilva notified immediately and came to assess. Dr. Dasilva determined to cancel procedure for today. Patient aware and states he will see his primary care provider about rash and will reschedule surgery. Patient got dressed and left preop area in good condition with all belongings.
== END | disposition home or self-care (01) ==
LOC: OR 07:38 → AC 09:21 → OR 09:23
PROVIDERS: PCP Nurse Practitioner Family; Referring Provider Nurse Practitioner Family; Visit Provider Orthopaedic Surgery
DX: Z53.9 Procedure and treatment not carried out, unspecified reason (principal)

== ENCOUNTER → 2020-10-24 10:30 | Outpatient (CLI) | payer OTHER, MEDICAID, SELFPAY ==
[2020-10-21 09:56] VITALS: BMI 30.9
[2020-10-24 11:32] LABS: Add Manual Diff / Slide Review NO; Basophils Absolute Auto 0 /uL (0-100); Basophils Percent Auto 0.5 % (0-2); Eosinophils Absolute Auto 400 /uL (0-450); Eosinophils Percent Auto 5.4 % (2-4); Lymphocytes Absolute Auto 1200 /uL (1100-4500); Lymphocytes Percent Auto 17.6 % (25-40); Mean Corpuscular HGB Conc 33.4 % (30-36); Mean Corpuscular Hemoglobin 31.2 PG (26-34); Mean Corpuscular Volume 93.4 fL (80-100); Monocytes Absolute Auto 700 /uL (0-900); Neutrophils Absolute Auto 4600 /uL (1500-7000); Neutrophils Percent Auto 66.5 % (50-75); Platelet Count 275 X10^3/uL (150-400); Red Cell Distribution Width 13.7 % (11.6-14.8); White Blood Cell Count 6.9 X10^3/uL (4.5-11.0)
== END ==
PROVIDERS: PCP Nurse Practitioner Family; Referring Provider Orthopaedic Surgery; Visit Provider Orthopaedic Surgery
DX: Z01.812 Encounter for preprocedural laboratory examination (principal)
CPT/HCPCS: 36415; 85025

== ENCOUNTER → 2020-10-31 08:29 | Outpatient (CLI) | payer OTHER, MEDICAID, SELFPAY ==
[2020-10-21 09:56] VITALS: BMI 30.9
[2020-10-31 09:55] LABS: COVID19 -Nasal RAPID Negative (Negative)
== END ==
PROVIDERS: Family Provider Family Medicine; PCP Nurse Practitioner Family; Visit Provider Physician Assistant
DX: Z11.59 Encounter for screening for other viral diseases (principal)
CPT/HCPCS: 87635

== ENCOUNTER 2020-11-03 14:50 | Observation (INO) | payer OTHER, MEDICAID, SELFPAY ==
[2019-04-28 14:23] VITALS: BMI 30.9
[2020-10-21 09:56] VITALS: BMI 30.9
[2020-10-31 14:43] VITALS: BMI 29.5
[2020-11-02] VITALS (12 sets, daily range): BP systolic 103–125; BP diastolic 51–81; PULSE 51–76; RESP 10–22; TEMP 35.7–36.6; O2SAT 96–100; BMI 29.5
--- NOTE | 2020-11-02 06:00 | DI.RAD.S_ITS ---
PROCEDURE: XR PELVIS 1-2V INDICATIONS: DREW TECHNIQUE: 1 view of the lower pelvis acquired. COMPARISON: [facility], , XR PELVIS 1-2V, 04/28/2019, 12:38. FINDINGS: Bones: Patient is status post right hip arthroplasty, with hardware components in expected positions. The hip joint appears congruent. The visualized bony structures elsewhere also appear intact, including a previously performed left total hip arthroplasty.. Soft tissues: Overlying postoperative changes are noted. No suspicious soft tissue densities. IMPRESSION: Prior left total hip arthroplasty stable over time, new right total hip arthroplasty alignment appears normal. Dictated by: Pollo Claros M.D. on 11/02/2020 at 14:00 Approved by: Pollo Claros M.D. on 11/02/2020 at 14:07
[2020-11-02] MEDS: MELOXICAM 7.5 MG TABLET 15 MG PO (08:56)
[2020-11-02] MEDS: LACTATED RINGERS 1,000 ML 42 ML IV ×2 (09:09→11:40)
--- NOTE | 2020-11-02 10:27 | PM.PREOP ---
Pre-operative Note COVID-19 COVID-19 status: Negative Result date/Date tested (Pos, Neg/Pending): 10/31/20 Interval Note History & Physical reviewed/Exam performed by Physician: Yes Changes to H&P: No
[2020-11-02] MEDS: CEFAZOLIN 2 GM/100 ML FROZ.PIGGY IV (11:18)
[2020-11-02] MEDS: TRANEXAMIC ACID 1,000 MG VIAL 2000 MG INJ ×2 (11:24→12:21)
[2020-11-02] MEDS: ROPIVACAINE 0.5% PF 5 MG/ML 20ML VIAL 60 ML INJ (11:47)
[2020-11-02] MEDS: MORPHINE 4 MG/ML INJ INJ (11:49)
[2020-11-02] MEDS: KETOROLAC 30 MG/ML VIAL IV (11:51)
--- NOTE | 2020-11-02 12:45 | P.OP_ITS ---
Operative Date/Time/Diagnoses Date of procedure: 11/02/20 Time of procedure: 12:45 Pre-op diagnosis: Right hip degenerative joint disease Post-op diagnosis: same Procedure & Clinicians Procedure: Right total hip arthroplasty (CPT code 30940 with podiatric assistant) Same procedure as scheduled: Yes Indications: Patient is an 65-year-old male with severe right hip DJD. The patient has pain with activities and at rest, limited ambulation and activity tolerance, difficulties with ADLs, and failure of conservative treatment. We have discussed the nature of condition, treatment options, risks and benefits, and patient elects to proceed with total hip arthroplasty and gives informed consent. Surgeon: John Dasilva Roller Bearing Inspector: González Washington Anesthesia Type: General and Spinal Operative Notes Closure Type: primary Specimen(s): none sent Prosthetic devices, grafts, tissues, transplants, or devices: Acetabulum: Arriola and Nephew R3 acetabular component size 54 mm Femoral component: Arriola [employer] Nephew Anthology stem size 9 with standard offset Femoral head: 36 mm + 0 Oxinium Estimated Blood Loss (mL): 200 Procedure in detail: After satisfaction induction of anesthetic, and administration of IV antibiotics, the patient was positioned in the lateral decubitus position with all bony prominences well padded and pelvic position secured using a hip parks recreation coordinator positioning device. Right hip and lower extremity prepped and draped in the usual sterile fashion, 1st dose of intravenous fang examic acid was administered, then a longitudinal incision was created centered over the greater trochanter and carried sharply through the skin and subcutaneous tissues down to the fascia elijah which was divided longitudinally and retracted with a Charnley retractor. External rotators visualize, cut, tagged, and retracted posteriorly, then the capsule was cut in a T-type fashion with the corners tagged and retracted. Hip was dislocated and femoral neck cut made according to preoperative templating. Acetabular retractors then placed, and the acetabular labrum and osteophytes were excised. The acetabulum was then sequentially reamed to 53 mm with an excellent circumferential ream and fit with the trial. The trial component was removed and a permanent size 54 mm Arriola and Nephew R3 acetabular component was selected, positioned, and impacted with satisfactory position and fixation achieved. Permanent liner was then inserted with the elevated lip directed posteriorly. Soft tissue then removed off the lateral femoral neck in the lateral neck was entered using a box osteotome. T- handled reamers placed down the canal followed by sequential broaching to 9 with the final broach left in place for trial reduction which demonstrated excellent leg length, range of motion, and stability characteristics with a 36 mm +0 trial ball. During removal of the 9. Broach, the posterior tip of the greater trochanter was fractured and the fragment did not compromise the attachment of the abductors and was too small to consider fixation so was therefore debrided. The trial and broach were removed, and a permanent size 9 Arriola and Nephew Anthology stem was selected and inserted with excellent position and fixation achieved. Another trial reduction yielded the above characteristics so the trial ball was exchanged for a permanent 36 mm +0 Oxinium ball. The hip was irrigated and reduced and excellent leg length range of motion and stability characteristics were achieved and maintained. Periarticular tissues were infiltrated with ropivacaine, morphine, and Toradol. The hip was copiously irrigated, and the capsule repaired with #2 Ethibond, and the piriformis was repaired back to the greater trochanter with the same. Fascia elijah closed with interrupted #1 Ethibond sutures, and the subcutaneous tissues were closed in 2 layers of 0 Vicryl and 2 0 Vicryl. Skin was closed with zip line skin closure and sterile dressings applied. Second dose of tranexamic acid was administered intravenously, and the anesthetic was terminated. Complications: none Post-operative Condition: stable Disposition: PACU Plan for aftercare: Patient will be admitted to the acute care [facility], and anticipate discharge on postop day 1 with follow-up in office in 10-14 days. Outpatient physical therapy will be arranged and patient will continue to observe posterior hip precautions. Patient will continue use of postoperative aspirin for DVT prophylaxis postop.
[2020-11-02] MEDS: LACTATED RINGERS 1,000 ML 125 ML IV ×2 (13:59→21:07)
--- NOTE | 2020-11-02 14:07 | PC.NURSE ---
Pt to room 205 via bed from PACU. Pt A&O x3. Denies pain, nausea and SOB. Pt resting comfortably in bed, able to move legs. Oriented pt to room, instructed on use of call light, tv controls, room and bed controls. Instructed pt not to get up without assistance, to call for assistance. SCD's placed and on, educated DVT precautions encouraging pt to perform ankle waves and deep breathing exercises to prevent blood clots or atelectasis. IV infusing as ordered. Pt given snacks and beverages. Pt agrees to call for assistance if needed.
[2020-11-02] MEDS: ONDANSETRON 4 MG ODT PO (18:56)
[2020-11-02] MEDS: DOCUSATE 100 MG CAPSULE PO (21:05)
[2020-11-02] MEDS: ASPIRIN EC 81 MG TABLET PO (21:05)
[2020-11-02] MEDS: ONDANSETRON 4 MG/2 ML INJ IV (21:52)
[2020-11-03] VITALS (7 sets, daily range): BP systolic 95–111; BP diastolic 49–64; PULSE 59–64; RESP 15–20; TEMP 36–37; O2SAT 93–100
[2020-11-03] MEDS: LACTATED RINGERS 1,000 ML 125 ML IV (05:19)
[2020-11-03 06:05] LABS: Hematocrit 33.5 % (41-53); Hemoglobin 11.4 g/dL (13.5-17.5)
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
[2020-11-03] MEDS: ASPIRIN EC 81 MG TABLET PO ×2 (09:10→21:49)
[2020-11-03] MEDS: DOCUSATE 100 MG CAPSULE PO ×2 (09:10→21:49)
[2020-11-03] MEDS: INFLUENZA VACCINE 0.5 ML SYRINGE IM (09:10)
[2020-11-03] MEDS: SOLIFENACIN 5 MG TABLET PO (09:10)
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
--- NOTE | 2020-11-03 13:20 | PT.IPTN ---
Current Diagnoses Unilateral primary osteoarthritis, right hip (11/02/20) Surgery Performed Operation Date: 11/02/20 10:45 Actual Procedures p Total Hip Arthroplasty(Right) - John Dasilva MD Physical Therapy Treatment Note M2 PT-IP Current Condition Start: 11/03/20 11:07 Freq: NEEDED Status: Active Protocol: Document 11/03/20 09:49 AB (Rec: 11/03/20 11:22 AB [email or web address]) Physical Therapy Current Condition Current Condition Evaluation Date 11/03/20 Treatment Diagnosis s/p R DREW posterior approach; difficulty in walking Precautions Posterior Hip Precautions No Hip Flexion > 90 degrees,No Hip Internal Rotation,No Hip Adduction Weight Bearing Status Weight Bearing Status Weight Bear as Tolerated Allowed Weight Bearing Amount (enter % RLE WBAT or #) (%) M3 PT-IP Subjective Start: 11/03/20 11:07 Freq: NEEDED Status: Active Protocol: Document 11/03/20 13:20 AB (Rec: 11/03/20 13:41 AB [email or web address]) Subjective Physical Therapy Visit Type Type Treatment Note Visit Start Time 13:20 Visit Stop Time 13:33 Total Visit Minutes 13 Number of SLOT ATTENDANT Visits 0 Therapy Pain Assessment Pain When Pain Assessed At Rest Pain Present Pain Present Pain Reported Location Right Hip Intensity 2 Scale Used Numeric (0 - 10) Pain Management Techniques Modification of Treatment,Re- positioning M4 PT-IP Mobility and Gait Start: 11/03/20 11:07 Freq: NEEDED Status: Active Protocol: Document 11/03/20 13:20 AB (Rec: 11/03/20 13:41 AB [email or web address]) Gait Assessment Gait Gait Assistance Required: Standby Assistance Distance (Feet) 300 Able to Maintain Weight Bearing Status Yes During Gait Assistive Devices Assistive Device Gait Belt,Front Wheeled Walker Orthotic/Prosthetic Devices or Brace: No Gait Deviations General Gait Pattern Antalgic,Decreased Stride Length,Decreased Feet Clearance,Narrow Based Gait Factors Limiting Gait Function Factors Limiting Gait Function Decreased Activity Tolerance, Decreased Strength,Limited Range of Motion,Pain,Poor Balance,Poor Safety Awareness Comments Gait Comments pt ambulating with NAC and PT took over. pt ambulated in hallway using FWW SBA. continues to have LLE circumduction and ankle inversion. cued to correct. ambulated back to his room and wanting to use the toilet. Left pt to use the toilet. NAC informed. M5 PT-IP Objective Assessments Start: 11/03/20 11:07 Freq: NEEDED Status: Active Protocol: Document 11/03/20 09:49 AB (Rec: 11/03/20 11:22 AB [id number]) Orientation Orientation/Cognition Level of Alertness Alert Orientation Name,Place,Situation Language Function Ability No Deficits Noted Safety Awareness Understands Safety Issues Memory Description No Deficits Noted Gross Range of Motion Lower Extremity ROM Assessment Within Functional Limits Strength Lower Extremity Strength Assessment Within Functional Limits Coordination Assessment Gross Coordination Gross Coordination WNL Sensation Assessment Sensation Gross Sensation WNL M6 PT-IP Treatment Start: 11/03/20 11:07 Freq: NEEDED Status: Active Protocol: Document 11/03/20 13:20 AB (Rec: 11/03/20 13:41 AB [email or web address]) Physical Therapy Treatment Education Education Provided Precautions,Safety M7 PT-IP Assessment and Plan Start: 11/03/20 11:07 Freq: NEEDED Status: Active Protocol: Document 11/03/20 13:20 AB (Rec: 11/03/20 13:41 AB [email or web address]) PT Summary Assessment and Plan Potential Rehabilitation Potential Good Summary Progress Towards Goals Progressing Toward Goals Assessment Summary pt is doing well with mobility and plans to go home later today. will have his sister to assist him at home. pt may go home when medically stable . Goals Bed Mobility Goal Independent Transfer Goal Independent,Front Wheeled Walker Gait Goal Independent,Front Wheel Walker Gait Distance 200 Other Goals up/down 2 steps R rail ascending mod I Days to Meet Goals 3 Frequency of Treatment Frequency Of Treatment Twice a Day Treatment Plan Physical Therapy Treatment Plan Bed Mobility Training,Transfer Training,Gait Training, Therapeutic Exercise,Balance Retraining,Post Op Education, Discharge Planning,Hot or Cold Pack,Neuromuscular Re-ed, Coordination Retraining,Manual Therapy Recommendations To Nursing Amount of Assist Needed Standby Assistance Discharge Recommendations PT Discharge Recommendations Home with Assistance, Outpatient PT Transportation Needs at Discharge Private Vehicle
[2020-11-04 05:30] VITALS: BP 114/61; PULSE 55; RESP 16; TEMP 36.9; O2SAT 98
--- NOTE | 2020-11-04 07:32 | P.PN_ITS ---
Subjective Subjective Date Patient Seen: 11/04/20 Time Patient Seen: 07:32 Interval history: POD #2 s/p Right DREW with Dr. Dasilva. Patient had nausea following surgery and this has now resolved. He needed to have a sifuentes catheter placed again last night. No underlying history of BPH. Has been tolerating the vesicare well. He has been mobilizing with PT throughout his stay. Pain well controlled with Tylenol and Ibuprofen. Exam Vital Signs (past 8 hours): - 11/03/20 23:55 11/04/20 05:30 Temperature 97.5 F L 98.4 F Pulse Rate 64 55 L Respiratory Rate 16 16 Blood Pressure 106/60 114/61 Pulse Oximetry 97 98 Oxygen Delivery Method Room Air Oxygen Flow Rate 0 Narrative Exam Narrative: Patient lying in bed in NAD. He is alert and oriented X3. Calves are soft, compressible, and nontender bilaterally. SILT throughout BLEs. He is able to actively dorsiflex and plantarflex. Objective Labs Result Diagrams: 11/03/20 05:30 [facility] Medical History Arthritis Closed head injury (~1980) Finger fracture, right Hip fracture, left (10/31/17) Surgical History History of total left hip arthroplasty (04/28/19) Hx of arthroscopy of left knee (~1980) Social History household members: family Smoking Status: Former smoker alcohol intake: current Assessment & Plan Post-op Postoperative Procedures: Procedures Operation Date: 11/02/20 10:45 Actual Procedures Side Surgeon p Total Hip Arthroplasty Right John Dasilva MD Patient will mobilize with PT today. Continue current pain control. Plan for Vesicare for 2 weeks and recommending follow up with PCP regarding BPH management. Will DC sifuentes this Am. If able to void he can DC home today. Quality VTE Deep Vein Thrombosis/Pulmonary Embolism Present on Admission: No
[2020-11-04 07:57] VITALS: BP 114/59; PULSE 60; RESP 14; TEMP 37.1; O2SAT 96
--- NOTE | 2020-11-04 09:57 | PT.IPTN ---
Current Diagnoses Unilateral primary osteoarthritis, right hip (11/03/20) Surgery Performed Operation Date: 11/02/20 10:45 Actual Procedures p Total Hip Arthroplasty(Right) - John Dasilva MD Physical Therapy Treatment Note M2 PT-IP Current Condition Start: 11/03/20 11:07 Freq: NEEDED Status: Active Protocol: Document 11/03/20 09:49 AB (Rec: 11/03/20 11:22 AB [id number]) Physical Therapy Current Condition Current Condition Evaluation Date 11/03/20 Treatment Diagnosis s/p R DREW posterior approach; difficulty in walking Precautions Posterior Hip Precautions No Hip Flexion > 90 degrees,No Hip Internal Rotation,No Hip Adduction Weight Bearing Status Weight Bearing Status Weight Bear as Tolerated Allowed Weight Bearing Amount (enter % RLE WBAT or #) (%) M3 PT-IP Subjective Start: 11/03/20 11:07 Freq: NEEDED Status: Active Protocol: Document 11/04/20 09:33 KS (Rec: 11/04/20 11:47 KS [id number]) Subjective Physical Therapy Visit Type Type Treatment Note Visit Start Time 09:33 Visit Stop Time 09:57 Total Visit Minutes 24 Number of [employer]ENT[employer] Visits 1 Physical Therapy Visit Comments Patient Comments pt is agreeable to do PT M4 PT-IP Mobility and Gait Start: 11/03/20 11:07 Freq: NEEDED Status: Active Protocol: Document 11/04/20 09:33 KS (Rec: 11/04/20 11:47 KS [id number]) PT-Bed Mobility Assessment Supine to Sit Supine to Sit Standby Assistance Scooting Scooting to Edge of Bed Standby Assistance PT-Transfer Assessment Sit to and From Stand Sit to and from Stand Standby Assistance,1 Person Assistance,Use of Upper Extremities Equipment Transfer Assistive Device Gait Belt,Front Wheeled Walker Orthotic/Prosthetic Devices or Brace: No Transfers Transfer Destination Chair Transfer Technique ambulated using FWW Transfer Ability Level of Assist Standby Assistance,Contact Guard Assistance Comments Mobility Comments Patient in bed upon arrival from PT. SBA for sup<>sit and scooting EOB. SBA for sit<> stand w/ FWW. Pt then ambulated ~125 ft w/ FWW abd SBA. Pt has + L circumduction at his baseline, but demonstrated proper use of FWW w/ min cues for upright posture. Pt returned to room and chair SBA. Pt left in chair w/ all needs in reach. Gait Assessment Gait Gait Assistance Required: Standby Assistance Distance (Feet) 125 Able to Maintain Weight Bearing Status Yes During Gait Assistive Devices Assistive Device Gait Belt,Front Wheeled Walker Orthotic/Prosthetic Devices or Brace: No Gait Deviations General Gait Pattern Antalgic,Decreased Stride Length,Decreased Feet Clearance,Narrow Based Gait Factors Limiting Gait Function Factors Limiting Gait Function Decreased Activity Tolerance, Decreased Strength,Limited Range of Motion,Pain,Poor Balance,Poor Safety Awareness Comments Gait Comments Please refer to mobility section for details. PT-Balance Assessment Sitting Balance and Reactions Static Sitting Balance Ability Good Dynamic Sitting Balance Ability Good Standing Balance and Reactions Static Standing Balance Ability Fair Dynamic Standing Balance Ability Fair Device Used FWW M5 PT-IP Objective Assessments Start: 11/03/20 11:07 Freq: NEEDED Status: Active Protocol: Document 11/03/20 09:49 AB (Rec: 11/03/20 11:22 AB [id number]) Orientation Orientation/Cognition Level of Alertness Alert Orientation Name,Place,Situation Language Function Ability No Deficits Noted Safety Awareness Understands Safety Issues Memory Description No Deficits Noted Gross Range of Motion Lower Extremity ROM Assessment Within Functional Limits Strength Lower Extremity Strength Assessment Within Functional Limits Coordination Assessment Gross Coordination Gross Coordination WNL Sensation Assessment Sensation Gross Sensation WNL M6 PT-IP Treatment Start: 11/03/20 11:07 Freq: NEEDED Status: Active Protocol: Document 11/04/20 09:33 KS (Rec: 11/04/20 11:47 KS [id number]) Physical Therapy Treatment Education Education Provided Precautions,Safety M7 PT-IP Assessment and Plan Start: 11/03/20 11:07 Freq: NEEDED Status: Active Protocol: Document 11/04/20 09:33 KS (Rec: 11/04/20 11:47 KS [id number]) PT Summary Assessment and Plan Potential Rehabilitation Potential Good Summary Progress Towards Goals Progressing Toward Goals Assessment Summary Patient is SBA for mobility, transfers and ambulation w/ FWW. He was able to tolerate ~ 125 ft ambulation w/ FWW and cues for upright posture. Patient states he feels safe to go home and his sister will be there to assist as needed. Pt may go home when medically stable and will benefit from outpatient PT which he has scheduled to begin next week. Goals Bed Mobility Goal Independent Transfer Goal Independent,Front Wheeled Walker Gait Goal Independent,Front Wheel Walker Gait Distance 200 Other Goals up/down 2 steps R rail ascending mod I Days to Meet Goals 3 Frequency of Treatment Frequency Of Treatment Twice a Day Treatment Plan Physical Therapy Treatment Plan Bed Mobility Training,Transfer Training,Gait Training, Therapeutic Exercise,Balance Retraining,Post Op Education, Discharge Planning,Hot or Cold Pack,Neuromuscular Re-ed, Coordination Retraining,Manual Therapy Recommendations To Nursing Amount of Assist Needed Standby Assistance Discharge Recommendations PT Discharge Recommendations Home with Assistance, Outpatient PT Transportation Needs at Discharge Private Vehicle
[2020-11-04] MEDS: DOCUSATE 100 MG CAPSULE PO (10:04)
[2020-11-04] MEDS: ASPIRIN EC 81 MG TABLET PO (10:04)
[2020-11-04] MEDS: SOLIFENACIN 5 MG TABLET PO (10:11)
[2020-11-04 11:34] VITALS: BP 117/56; PULSE 60; RESP 14; TEMP 36; O2SAT 98
[2020-11-04] MEDS: polyethylene glycoL 3350 17 GM POWD.PACK PO (13:46)
--- NOTE | 2020-11-04 15:10 | CM.DPC ---
DCP: continued. Voiding issues have resolved and pt is ok for d/c to home. New order has been put in by ortho team. Home today with sister and mother's prn support. OUTPT PT.
--- NOTE | 2020-11-04 17:35 | PC.NURSE ---
A&Ox3, pt is pleasant and cooperative. DC teaching done on day. Patient was able to get himself dressed and req. no help from staff. Pt left in stable condition, VSS, escorted to personal vehicle via wc by aid.
== END 2020-11-04 15:40 | disposition home or self-care (01) ==
LOC: OR 15:29 → AC 15:29
PROVIDERS: Admitting Provider Physician Assistant Surgical; Family Provider Family Medicine; PCP Nurse Practitioner Family; Referring Provider Orthopaedic Surgery; Visit Provider Orthopaedic Surgery
PROC: 0SR90JZ Replacement of Right Hip Joint with Synthetic Substitute, Open Approach (ICD-10-PCS; CPT 27130; principal; 2020-11-02 10:45)
DX: M16.11 Unilateral primary osteoarthritis, right hip (principal); R11.2 Nausea with vomiting, unspecified; R33.9 Retention of urine, unspecified; I69.359 Hemiplegia and hemiparesis following cerebral infarction affecting unspecified side; Z87.820 Personal history of traumatic brain injury
CPT/HCPCS: 27130; 36415; 72170; 85014; 85018; 90471; 90656; 97116; 97161; 97530; C1776; G0378; J0690; J1100; J1885; J2250; J2270; J2274; J2405; J2704; Q2038

== ENCOUNTER → 2024-08-03 06:39 | Outpatient (CLI) | payer MEDICARE, SELFPAY ==
[2020-11-02 13:37] VITALS: BMI 29.5
--- NOTE | 2024-08-03 06:44 | DI.US.S_ITS ---
PROCEDURE: US ABD AORTA ANEURYSM SCREEN INDICATIONS: TOBACCO DEP DUE TO CIGARETTES REMISSION/SCREEN. Clinical suspicion of abdominal aortic aneurysm. TECHNIQUE: Real-time scanning was performed of the aorta and proximal common iliac arteries, with image documentation. 15 images submitted. COMPARISON: None. FINDINGS: Aorta: Abdominal aorta is normal in caliber throughout its length. AP and transverse dimensions of the aorta: Proximal: 2.0 x 2.0 cm Mid 1.8 x 1.8 cm Distal: 1.9 x 2.0 cm Iliacs: Right common iliac artery is mildly tortuous, ectatic , measuring approximately 1.7 cm diameter. Left common iliac artery measures approximately 1.1 cm diameter. Incidental note is made of moderately distended urinary bladder measures up to approximately 1417 cc with nonspecific wall thickening and internal echoes/proteinaceous fluid/debris, suspicious for chronic urinary retention although cystitis, infiltrated bladder wall process or other cause could be considered. CT urogram without then with IV contrast may be useful for further evaluation. Follow-up suggested. Prostate gland is moderately enlarged measures approximately 4.8 x 4.5 x 3.8 cm with a volume approximately 43.5 cc. IMPRESSION: No ultrasound evidence of abdominal aortic aneurysm. Mildly tortuous, ectatic right common iliac artery. Moderately enlarged prostate gland incidentally noted. Moderately distended urinary bladder with nonspecific wall thickening, internal echoes/debris as discussed above. Follow-up suggested. CT urogram on an outpatient basis, without then with IV contrast may be useful for further evaluation. Dictated by: Markus Maria M.D. on 08/03/2024 at 8:21 Approved by: Markus Maria M.D. on 08/03/2024 at 8:30
--- NOTE | 2024-08-03 06:44 | DI.CT.S_ITS ---
PROCEDURE: CT LUNG LOW DOSE SCREENING INDICATIONS: TOBACCO DEP DUE TO CIGARETTES REMISSION/SCREEN TECHNIQUE: Noncontrast 2.0-2.5 mm thick sections acquired from the pulmonary apices to the posterior costophrenic angles. 7 mm thick axial MIP, and 5 mm coronal and sagittal reformats were then acquired. For radiation dose reduction, the following was used: automated exposure control, adjustment of mA and/or kV according to patient size. COMPARISON: None. FINDINGS: Image quality: Diagnostic. Lower Neck: No enlarged lymph nodes. Thyroid: No thyroid nodules which require sonographic follow up, per consensus guidelines. Axillae: No enlarged lymph nodes. Chest Wall: Unremarkable. Bones: Severe DJD of both shoulders especially on the right with large osteophytes, heterotopic bone formation.. Lungs and Pleura: No pneumothorax or pleural effusions. No consolidation or suspicious nodules. Minimal atelectatic changes in the left base (image 39/4). Heart: Heart size is normal. No pericardial effusion. Thoracic Vessels: The aorta and pulmonary arteries demonstrate normal size. Mediastinum and Josie: Large number of lymph nodes, not enlarged by CT criteria. Evaluation without IV contrast is limited Esophagus: No wall thickening. No hiatal hernia. Upper Abdomen: 1 centimeter fat density left adrenal nodule, benign. IMPRESSION: No suspicious pulmonary nodules. LUNG-RADS 2; continued annual screening, if eligible. Clinically Significant Non-pulmonary Findings: Severe DJD of the the shoulders especially on the right Dictated by: Vijay Brooke M.D. on 08/03/2024 at 15:55 Approved by: Vijay Brooke M.D. on 08/03/2024 at 16:07
== END ==
LOC: CT 06:43
PROVIDERS: Family Provider Family Medicine; PCP Nurse Practitioner Family; Referring Provider Family Medicine; Visit Provider Family Medicine
DX: Z12.2 Encounter for screening for malignant neoplasm of respiratory organs (principal); Z13.6 Encounter for screening for cardiovascular disorders; Z87.891 Personal history of nicotine dependence; N40.0 Benign prostatic hyperplasia without lower urinary tract symptoms; N32.89 Other specified disorders of bladder; M19.011 Primary osteoarthritis, right shoulder; M19.012 Primary osteoarthritis, left shoulder
CPT/HCPCS: 71271; 76706

== ENCOUNTER → 2024-08-06 12:28 | Outpatient (CLI) | payer MEDICARE, SELFPAY ==
[2020-11-02 13:37] VITALS: BMI 29.5
--- NOTE | 2024-08-06 12:29 | DI.CT.S_ITS ---
PROCEDURE: CT ABDOMEN PELVIS WO/W CON INDICATIONS: URINARY RETENTION TECHNIQUE: Optional 5 mm thick noncontrast images acquired from the diaphragm to the symphysis pubis. After the administration of intravenous contrast, 5 mm thick images acquired from the diaphragm to the symphysis pubis after a 10-minute delay. 2 mm thick coronal and sagittal reformats were then performed of the kidneys and ureters. For radiation dose reduction, the following was used: automated exposure control, adjustment of mA and/or kV according to patient size. COMPARISON: None. FINDINGS: Image quality: Portions of the lower pelvis are suboptimally evaluated secondary to metallic streak artifact from bilateral hip arthroplasty. Kidneys and Ureters: Both kidneys are normal in size, without hydronephrosis or nephrolithiasis. No perinephric fat stranding. There is normal bilateral renal enhancement. Renal calyces appear normal in morphology when filled with contrast. Opacified portions of both ureters demonstrate normal caliber Bladder: Bladder is markedly distended, measuring 12.8 x 15.7 x 16.1 cm. No calcified bladder stones. OTHER: Lower chest: Unremarkable. Liver: No solid mass. Mild steatosis. Gallbladder: Unremarkable. Biliary ducts: No biliary dilation. Pancreas: No ductal dilation. Spleen: Size is within normal limits. Adrenal Glands: 1.9 cm left adrenal nodule Hounsfield units measuring 8 on noncontrast sequence. Stomach and Bowel: Normal colonic caliber, without significant wall thickening. Peritoneum: No abnormal intraperitoneal fluid. No free air. Ventral Wall: Fat containing ventral hernia. Abdominal Nodes: No retroperitoneal or mesenteric adenopathy by size criteria. Vessels: Aorta and inferior vena cava are normal in size. PELVIS: Pelvic Organs: Prostate gland appears mildly hypertrophied. However, visualization is obscured secondary to metallic streak artifact from bilateral hip arthroplasty. Pelvic Nodes: No enlarged lymph nodes. Miscellaneous: No inguinal hernias are seen. Bones: No aggressive osseous abnormality. IMPRESSION: No nephrolithiasis or filling defects within the opacified renal collecting system or ureters. Bladder is prominently distended. Prostate gland is mildly enlarged. However, it is poorly evaluated secondary to adjacent artifact from hip arthroplasties. Dictated by: Demi Alcazar M.D. on 08/06/2024 at 16:19 Approved by: Demi Alcazar M.D. on 08/06/2024 at 16:22
[2024-08-06 12:50] LABS: Estimated Glomerular Filt Rate > 60 mL/min (>60)
== END ==
PROVIDERS: Radiology Diagnostic Radiology; Family Provider Family Medicine; PCP Family Medicine; Referring Provider Family Medicine; Visit Provider Family Medicine
DX: N40.0 Benign prostatic hyperplasia without lower urinary tract symptoms (principal); R33.9 Retention of urine, unspecified; K76.0 Fatty (change of) liver, not elsewhere classified; K43.9 Ventral hernia without obstruction or gangrene; N32.89 Other specified disorders of bladder; Z96.643 Presence of artificial hip joint, bilateral
CPT/HCPCS: 36415; 74178; 82565; Q9967

== ENCOUNTER → 2024-08-11 08:50 | Outpatient (CLI) | payer MEDICARE, SELFPAY ==
[2020-11-02 13:37] VITALS: BMI 29.5
[2024-08-12 13:12] LABS: PSA Free % 10.3 % (.); PSA, Total 2.9 ng/mL (0.0-4.0)
== END ==
PROVIDERS: Family Provider Family Medicine; PCP Family Medicine; Referring Provider Family Medicine; Visit Provider Family Medicine
DX: N40.1 Benign prostatic hyperplasia with lower urinary tract symptoms (principal); R33.8 Other retention of urine
CPT/HCPCS: 36415; 84153; 84154

== ENCOUNTER → 2024-08-13 15:00 | Outpatient (CLI) | payer MEDICARE, SELFPAY ==
[2020-11-02 13:37] VITALS: BMI 29.5
== END ==
PROVIDERS: Family Provider Family Medicine; PCP Family Medicine; Visit Provider Urology
DX: N40.1 Benign prostatic hyperplasia with lower urinary tract symptoms (principal); R39.9 Unspecified symptoms and signs involving the genitourinary system
CPT/HCPCS: 51798; 81002; 87086; 99213

== ENCOUNTER → 2024-09-22 10:18 | Outpatient (CLI) | payer MEDICARE, SELFPAY ==
[2020-11-02 13:37] VITALS: BMI 29.5
== END ==
PROVIDERS: Family Provider Family Medicine; PCP Family Medicine; Visit Provider Urology
DX: N40.1 Benign prostatic hyperplasia with lower urinary tract symptoms (principal)
CPT/HCPCS: 87077; 87086